=== PATIENT | female | born 1980 | race Caucasian/White ===

== ENCOUNTER 2023-11-01 14:50 | Emergency (ER) | payer OTHER, SELFPAY ==
--- NOTE | 2023-11-01 15:04 | ED.GENADULT ---
HPI - General Adult General Chief complaint: Upper Respiratory Infection Stated complaint: sorethroat Time Seen by Provider: 11/01/23 15:08 Source: patient, RN notes reviewed and old records reviewed Mode of arrival: ambulatory Limitations: no limitations History of Present Illness HPI narrative: 42-year-old female presents to [facility] with complaints general myalgia, sinus congestion, sore throat that started yesterday. Patient states has been tested positive for strep throat yesterday. Patient also states has had a cough for 10 weeks, but has seen her biochemical development engineer twice during that time, and believes it is long-term COVID. MD complaint: sore throat Onset (ago): day(s) (1) Related Data Home Medications Medication Instructions Recorded Confirmed fluoxetine 20 mg capsule 20 mg DIRECTED 11/01/23 11/01/23 montelukast 10 mg tablet 10 mg DIRECTED 11/01/23 11/01/23 sertraline 100 mg tablet 100 mg DIRECTED 11/01/23 11/01/23 topiramate 50 mg tablet 50 mg DIRECTED 11/01/23 11/01/23 ubrogepant 50 mg tablet (Ubrelvy) 50 mg DIRECTED 11/01/23 11/01/23 Allergies Allergy/AdvReac Type Severity Reaction Status Date / Time prednisone AdvReac Severe Unknown Verified 11/01/23 15:10 codeine AdvReac Mild Nausea and Verified 11/01/23 15:10 Vomiting Review of Systems Constitutional: Constitutional: Reports body ache(s), Denies chills, Reports fatigue, Denies fever(s) and Denies headache(s) Eyes: Eyes: Reports no additional eye complaints and Denies blurry vision ENT: Reports system reviewed and no additional complaints, except as documented, Denies vertigo, Denies dizziness, Denies ear discharge, Denies otalgia, Denies facial pain, Denies headache(s), Reports nasal congestion, Reports nasal discharge, Denies sinus pain, Denies sinus pressure and Reports sore throat Cardiovascular: Cardiovascular: Denies chest pain, Denies chest pain at rest, Denies rapid heart rate and Denies dyspnea Respiratory: Respiratory: Denies chest congestion, Reports cough, Denies pain on inspiration, Denies pain with cough and Denies dyspnea Gastrointestinal: Gastrointestinal: Denies abdominal pain, Denies diarrhea, Denies nausea and Denies vomiting Integumentary/Breasts: Skin/Breast: Denies rash Neurologic: Reports system reviewed and no additional complaints, except as documented, Denies vertigo, Denies dizziness and Denies headache(s) Endocrine: Endocrine: Denies fatigue PMFSH Comments At the time of my signature, I reviewed and agree with the nursing past medical, surgical, social, and family history. There is no relevant family history pertinent to the patient complaint. Exam Const: General: cooperative, healthy appearing, no acute distress and well nourished Nutritional Appearance: well nourished Orientation/consciousness: patient oriented x3 Limitations: no limitations HENMT: Head: normal to inspection and normocephalic Ears: external ears normal, TM's normal bilaterally, mastoids normal and Abnormal EAC present Face/Nose/Sinus: normal facial exam Face and sinus: normal facial exam Mouth: Yes Normal oral and palatal mucosa present, Yes oropharynx normal and Yes moist mucous membranes Throat: tonsils normal, uvula midline, posterior oropharynx abnormal erythema and no uvular edema Eyes: General: appearance normal, both eyes and all related structures Sclera: sclerae normal Pupils: Equal, round and reactive pupils present Resp: Effort & Inspection: normal respiratory effort, able to speak in complete sentences, no audible wheezes, no cough, no respiratory distress and no retractions Auscultation: clear to auscultation bilaterally, no crackles, no rales, no rhonchi and no wheezes Cardio: Rate: regular rate Rhythm: regular rhythm Skin: General skin exam: normal color and no rashes or lesions noted Neuro: General: patient oriented x3 Cranial nerves: Yes Equal, round and reactive pupils present Psych: Appearance: grossly n
[2023-11-01 15:07] VITALS: BP 115/78; PULSE 87; RESP 18; TEMP 36.6; O2SAT 100
[2023-11-01 15:13] VITALS: BP 115/78; PULSE 87; RESP 18; TEMP 36.6; O2SAT 100
== END 2023-11-01 15:55 | disposition home or self-care (01) ==
PROVIDERS: Emergency Provider Registered Nurse; PCP Family Medicine
DX: J06.9 Acute upper respiratory infection, unspecified (principal); Z20.822 Contact with and (suspected) exposure to COVID-19; Z79.899 Other long term (current) drug therapy
CPT/HCPCS: 87081; 87426; 87880; 99203; C9803; G0463